=== PATIENT | male | born 1975 | race Caucasian/White ===

== ENCOUNTER 2017-09-11 06:09 | Day surgery (SDC) | payer BC ==
[2017-08-27 11:28] VITALS: BMI 42.0
--- NOTE | 2017-08-27 11:44 | PAT Medication Instructions ---
Service Date Aug 27, 2017. Current Home Medication List Hydrochlorothiazide (Hctz), 25 MG PO QAM Lorazepam (Ativan), 1 MG PO HS Pantoprazole (Protonix), 20 MG PO QAM Valsartan (Diovan), 80 MG PO QAM Medication Instructions For Your Scheduled Surgery - Hold the following medications the morning of surgery: Hydrochlorothiazide (Hctz), 25 MG PO QAM Valsartan (Diovan), 80 MG PO QAM - Take the following medications the morning of surgery with a sip of water OTHERWISE NOTHING TO EAT OR DRINK AFTER MIDNIGHT: Pantoprazole (Protonix), 20 MG PO QAM - Take the following medications as scheduled the night before surgery: Lorazepam (Ativan), 1 MG PO HS If you have any questions please call us at [phone] or [phone] or [phone]
--- NOTE | 2017-08-27 12:18 | DIAGNOSTIC IMAGING REPORT ---
CHEST 2 VIEWS ROUTINE CLINICAL HISTORY: Preoperative chest COMPARISON STUDY: 09/13/2015 FINDINGS: The cardiac and mediastinal contours are normal. There is no evidence of focal pulmonary consolidation. There is no evidence of failure. No pleural effusions are visualized.[ IMPRESSION: No active disease in the chest. Electronically signed by: Ricky Rubin M.D. 08/27/2017 12:17 PM Dictated Date/Time: 08/27/2017 12:17 PM
[2017-08-27 12:34] LABS: BASO % 0.3 %; BASO ABS # 0.03 K/uL (0-0.2); EOS % 1.3 %; EOS ABS # 0.15 K/uL (0-0.5); HEMATOCRIT 45.6 % (42-52); HEMOGLOBIN 15.5 g/dL (14.0-18.0); IG# 0.03 K/uL (0.00-0.02); LYMPH ABS # 3.94 K/uL (1.2-3.4); MEAN CELL VOLUME 93.6 fL (80-100); MEAN CORPUSCULAR HEMOGLOBIN 31.8 pg (25-34); MEAN PLATELET VOLUME 11.5 fL (7.4-10.4); MONO % 4.8 %; MONO ABS # 0.54 K/uL (0.11-0.59); NEUT % 58.3 %; NEUT ABS # 6.57 K/uL (1.4-6.5); PLATELET COUNT 263 K/uL (130-400); RED CELL DISTRIBUTION WIDTH CV 13.1 % (11.5-14.5); RED CELL DISTRIBUTION WIDTH SD 45.1 fL (36.4-46.3); WHITE BLOOD COUNT 11.26 K/uL (4.8-10.8)
[2017-08-27 12:48] LABS: CALCIUM 9.4 mg/dl (8.5-10.1); CREATININE 0.95 mg/dl (0.60-1.40); POTASSIUM 3.9 mmol/L (3.5-5.1)
[~2017-09-11] VITALS: Ht 188 cm; Wt 148.0 kg
[~2017-09-11 06:09] MED LIST: ATV/1 PO; CEFAZOLIN 3000MG IV PUSH 15 ML IV SCH; DVN80 PO; HYDR25TA4 PO; LACTATED RINGER'S 1000ML 1,000 ML IV SCH; PRT/20 PO
[2017-09-11 06:25] VITALS: BP 137/82; PULSE 80; TEMP 37.1; O2SAT 97; Ht 188 cm; Wt 148.0 kg
[2017-09-11] MEDS ORDERED: ONDANSETRON INJ 2 MG/ML 2 ML VIAL ONE (07:03)
[2017-09-11] MEDS ORDERED: FENTANYL CITRATE INJ 50 MCG/1 ML 2 ML VIAL ONE (07:03)
[2017-09-11] MEDS ORDERED: ROCURONIUM BROMIDE 10 MG/ML 5 ML VIAL IV ONE (07:03)
[2017-09-11] MEDS ORDERED: MIDAZOLAM HCL 1 MG/ML 2ML VIAL ONE (07:03)
[2017-09-11] MEDS ORDERED: LIDOCAINE HCL 2% 2 ML VIAL (20MG/ML) ONE (07:03)
[2017-09-11] MEDS ORDERED: SUCCINYLCHOLINE CHLORIDE 20 MG/ML 10 ML VIAL IV ONE (07:03)
[2017-09-11] MEDS ORDERED: PROPOFOL IV EMULSION 10 MG/ML 20 ML VIAL IV ONE ×2 (07:03→09:00)
[2017-09-11] MEDS ORDERED: BUPIVACAINE 0.5 % 5 MG/1 ML MPF 30ML VIAL ONE (07:16)
[2017-09-11] MEDS ORDERED: BACITRACIN OINT 15 GM TUBE ONE (07:16)
[2017-09-11] MEDS ORDERED: EpHEDrine SULFATE INJ 50 MG/ML AMP IV PRN (07:45)
[2017-09-11] MEDS ORDERED: ATROPINE SULFATE 0.1 MG/ML 5ML SYR IV PRN (07:45)
[2017-09-11] MEDS ORDERED: HYDROmorphone INJ 2 MG/ML SYR/VIAL IV PRN (07:45)
[2017-09-11] MEDS ORDERED: ONDANSETRON INJ 2 MG/ML 2 ML VIAL IV PRN (07:45)
[2017-09-11] MEDS ORDERED: PHENYLEPHRINE 100MCG/ML 5ML SYR IV PRN (07:45)
--- NOTE | 2017-09-11 08:07 | History & Physical Bridge Note ---
H&P Re-Evaluation Bridge Note: I have examined the patient, reviewed the History & Physical and in the interval since the performance of the History & Physical I have noted the following changes of clinical significance: No changes noted
[2017-09-11] MEDS ORDERED: HYDR-5688 PO (08:24)
[2017-09-11] MEDS ORDERED: SULF800T23 PO (08:24)
--- NOTE | 2017-09-11 08:29 | Discharge Instructions ---
Discharge Instructions Date of Service Sep 11, 2017. Admission Reason for Admission: Right Hydrocele Discharge Discharge Diagnosis / Problem: right hydrocele Discharge Goals Goal(s): Decrease discomfort, Improve function, Increase independence, Improve disease control Activity Recommendations Activity Limitations: resume your previous activity Lifting Limitations: none, gradually increase as tolerated Exercise/Sports Limitations: none, gradually increase as tolerated May Resume Sexual Activity: when tolerated Shower/Bathe: tomorrow Driving or Machine Use: resume 1 day after discharge . Instructions / Follow-Up Instructions / Follow-Up Please remove your dressing and the drain tomorrow. Please keep your previously scheduled follow up appointment. Current Hospital Diet Patient's current hospital diet: Discharge Diet Recommended Diet: Regular Diet Pending Studies Studies pending at discharge: no Medical Emergencies . Who to Call and When: Medical Emergencies: If at any time you feel your situation is an emergency, please call 911 immediately. . Non-Emergent Contact Non-Emergency issues call your: Urologist Call Non-Emergent contact if: you have a fever, temperature is above 101.5, your pain is not controlled, your pain is worsening . . "Provider Documentation" section prepared by [facility]. . VTE Core Measure Inpt VTE Proph given/why not?: Treatment not indicated [place] Drug Monitoring Program Search Results: patient reviewed within database, no issues identified
[2017-09-11] MEDS ORDERED: DEXAMETHASONE SOD INJ 4 MG/ML VIAL ONE (08:41)
[2017-09-11] MEDS ORDERED: KETOROLAC TROMETHAMINE 30 MG/ML VIAL ONE (08:41)
[2017-09-11] MEDS ORDERED: LARYING-O-JET KIT (LTA) ONE (09:11)
[2017-09-11] MEDS ORDERED: SODIUM CHLORIDE 0.9% 1000ML 1,000 ML IV SCH (09:40)
[2017-09-11] MEDS ORDERED: OXYCODONE/ACETAMINOPHEN 5-325 TAB PO PRN ×2 (09:45)
--- NOTE | 2017-09-11 10:14 | [facility] Operative Report ---
Operative Report Operative Date Sep 11, 2017. Pre-Operative Diagnosis Right Hydrocele Post-Operative Diagnosis Same Procedure(s) Performed Right Scrotal Hydrocelectomy Surgeon Dr. Mustafa Waiter/Waitress Take Out Surgeon(s) none Estimated Blood Loss 15 ml Findings Right hydrocele, simple Specimens A: Right Hydrocele Sac Drains [place] Anesthesia Gen. Complication(s) None Disposition Recovery Room / PACU (stable) Indications Right hydrocele Description of Procedure The patient was identified in the preoperative holding area, appropriate informed consent reviewed and completed and the patient was transported to the operating suite. Appropriate preoperative antibiotics in the form of Ancef. Adequate general anesthesia was achieved, and he was placed in supine position where he was sterilely prepped and draped in standard fashion. I began the case by making a 4-5 cm incision in the midline raphae of the scrotum. I carried this to the superficial dartos fascia until I expose the tunical vaginalis. I then delivered the hydrocele through the incision and used skeletonizing vaginalis. Of note, he appears to have a mild inflammatory response, however I was able to adequately expose the entire sac. I then opened the second drained 350 mL of clear straw-colored fluid. I made an incision in the sac longitudinally with care to avoid encroachment upon the testicle or any of this adjacent cord structures. Redundant sac tissue was excised laterally with the cut edge of the tunical vaginalis oversewn utilizing a 2-0 Vicryl suture. I reversed the tunical vaginalis behind the testis entire loosely with 2 simple interrupted Vicryl sutures. I ensured excellent hemostasis from the inner aspects of the scrotum as well as the testis. A mike drain was placed through separate stab incision in the dependent portion of the right hemiscrotum. I placed a cord block with half percent Marcaine. Dartos fascia was reapproximated using a 2-0 chromic. Skin was anesthetized with half percent Marcaine before closure of the skin utilizing vertical mattress 2-0 chromic stitches. The drain was sutured to his dressing. Bacitracin and was placed over the incision as well as a scrotal support. Patient was extubated and taken to the PACU in stable condition. I attest to the content of the Intraoperative Record and any orders documented therein. Any exceptions are noted below.
--- NOTE | 2017-09-11 10:19 | Anesthesiology Progress Note ---
Anesthesia Post Op Note Date & Time Sep 11, 2017 at 10:18 Vital Signs Pain Intensity: 0 Vital Signs Past 12 Hours Date Time Temp Pulse Resp B/P (MAP) Pulse Ox O2 Delivery O2 Flow Rate FiO2 09/11/17 10:06 76 13 09/11/17 10:06 75 13 140/80 95 09/11/17 10:01 73 16 09/11/17 10:01 73 16 130/84 98 09/11/17 09:56 73 15 09/11/17 09:56 74 15 100 09/11/17 09:55 75 15 135/89 100 09/11/17 09:55 73 15 09/11/17 09:50 76 16 95 09/11/17 09:50 69 16 09/11/17 09:46 143/81 09/11/17 09:45 36.2 81 18 143/81 99 Oxymask 10 09/11/17 09:45 76 20 09/11/17 09:45 79 20 100 09/11/17 06:25 37.1 80 20 137/82 (100) 97 Room Air Notes Mental Status: alert / awake / arousable, participated in evaluation Pt Amnestic to Procedure: Yes Nausea / Vomiting: adequately controlled Pain: adequately controlled Airway Patency, RR, SpO2: stable & adequate BP & HR: stable & adequate Hydration State: stable & adequate Anesthetic Complications: no major complications apparent Patient instructed to use his CPAP whenever he takes naps today.
[2017-09-11 10:30] VITALS: BP 122/73; PULSE 77; TEMP 36.4; O2SAT 94
[2017-09-11 11:00] VITALS: BP 136/72; PULSE 84; O2SAT 95
[2017-09-11 11:15] VITALS: BP 132/78; PULSE 81; TEMP 36.6; O2SAT 96
== END 2017-09-11 11:20 | disposition home or self-care (01) ==
LOC: C.ACU 06:09
PROVIDERS: ATTEND Urology
DX: N43.3 Hydrocele, unspecified (principal); I10 Essential (primary) hypertension; F17.200 Nicotine dependence, unspecified, uncomplicated; Z79.899 Other long term (current) drug therapy; G47.33 Obstructive sleep apnea (adult) (pediatric); K21.9 Gastro-esophageal reflux disease without esophagitis; E66.01 Morbid (severe) obesity due to excess calories; Z68.41 Body mass index [BMI] 40.0-44.9, adult